=== PATIENT | male | born 1980 | race Caucasian/White ===

== ENCOUNTER → 2020-10-31 | Outpatient (CLI) | payer OTHER ==
[~2020-10-31] VITALS: Ht 177.8 cm; Wt 103.7 kg
[~2020-10-31] MED LIST: CRESTOR40 MG PO; MOBIC15 MG PO; PRINIVIL10 MG PO
[2020-10-31 12:35] VITALS: BP 123/90; PULSE 78; TEMP 98.7
[2020-10-31 13:55] VITALS: BP 151/63; PULSE 70
== END ==
LOC: COL.RAD 12:07
DX: M50.10 Cervical disc disorder with radiculopathy, unspecified cervical region (principal)
CPT/HCPCS: J1100

== ENCOUNTER → 2021-01-03 | Outpatient (CLI) | payer OTHER ==
[~2021-01-03] VITALS: Ht 177.8 cm; Wt 106.8 kg
[2021-01-03 09:21] VITALS: BP 125/74; PULSE 80; TEMP 98.7
[2021-01-03 09:50] VITALS: BP 126/83; PULSE 82
== END ==
LOC: COL.RAD 08:58
DX: M54.12 Radiculopathy, cervical region (principal)
CPT/HCPCS: J1100

== ENCOUNTER → 2021-09-18 | Outpatient (CLI) | payer OTHER | LOC: MHCPAIN 12:18 | DX: M54.2 Cervicalgia (principal); M47.812 Spondylosis without myelopathy or radiculopathy, cervical region; M79.2 Neuralgia and neuritis, unspecified | CPT/HCPCS: G0463 ==